=== PATIENT | female | born 1940 | race Caucasian/White ===

== ENCOUNTER 2018-10-28 07:40 | Inpatient (IN) ==
--- NOTE | 2018-10-18 09:48 | PAT Medication Instructions ---
Medication Instructions Date of Service October 18, 2018 Home Medications amlodipine 10 mg PO QAM atorvastatin 20 mg PO HS calcium carbonate-vitamin D3 [Calcium 600 + D(3)] 1 cap PO QPM cholecalciferol (vitamin D3) [Vitamin D3] 1,000 unit PO QAM cinnamon bark [Cinnamon] 500 mg PO QPM clonazepam 0.5 mg PO HS cranberry conc-ascorbic acid [Cranberry Plus Vitamin C] 1 cap PO QPM cyanocobalamin (vitamin B-12) 1,000 mcg PO QAM denosumab [Prolia] 60 mg SUBCUT UD fluticasone propionate 1 spray INTRANASAL QPM levocetirizine 5 mg PO HS levothyroxine 137 mcg PO QAM losartan 100 mg PO QAM melatonin 10 mg PO HS metformin 500 mg PO BID metoprolol tartrate 100 mg PO BID bxkcxeowsaxn-hnhrible-bzflos [Multivitamin 50 Plus] 1 tab PO QAM omega 3-mxm-bde-fish oil [Fish Oil] 1 cap PO QAM omeprazole 40 mg PO QAM potassium chloride 20 meq PO BID trazodone 150 mg PO HS ASK your prescriber and surgeon denosumab [Prolia] 60 mg SUBCUT UD STOP taking 2 weeks before surgery (or as soon as possible if surgery is within 2 weeks) cinnamon bark [Cinnamon] 500 mg PO QPM cranberry conc-ascorbic acid [Cranberry Plus Vitamin C] 1 cap PO QPM omega 3-ycd-iik-fish oil [Fish Oil] 1 cap PO QAM DO NOT take the morning of surgery cholecalciferol (vitamin D3) [Vitamin D3] 1,000 unit PO QAM cyanocobalamin (vitamin B-12) 1,000 mcg PO QAM losartan 100 mg PO QAM metformin 500 mg PO BID Multivitamin 50 Plus 1 tab PO QAM potassium chloride 20 meq PO BID Take morning of surgery With a small sip of water, OTHERWISE NOTHING TO EAT OR DRINK AFTER MIDNIGHT: amlodipine 10 mg PO QAM levothyroxine 137 mcg PO QAM metoprolol tartrate 100 mg PO BID omeprazole 40 mg PO QAM Take evening before surgery atorvastatin 20 mg PO HS calcium carbonate-vitamin D3 [Calcium 600 + D(3)] 1 cap PO QPM clonazepam 0.5 mg PO HS fluticasone propionate 1 spray INTRANASAL QPM levocetirizine 5 mg PO HS melatonin 10 mg PO HS metformin 500 mg PO BID metoprolol tartrate 100 mg PO BID potassium chloride 20 meq PO BID trazodone 150 mg PO HS Other Notes If you have any questions please call us at [phone] or [phone] or [phone] or [phone]
--- NOTE | 2018-10-18 14:51 | Anesthesiology Consultation ---
Date of Service October 18, 2018 Assessment & Plan (1) Encounter for pre-operative examination: - Check BSG AM DOS Chart Review Chart Review: Acceptable Risk for Surgery (pending surgeon-ordered PCP clearance scheduled 10/20 (Dr. Pal)) and Patient seen in Pre Admission Testing Teaching & Discussion Pre-Anesthesia Teaching/Discussion Notes: Instructed NPO after midnight before surgery,except medications with 15 cc of water. Medication instructions provided according to the PAT guidelines. History Surgery Operation Date: 10/28/18 09:00 Proposed Procedures p Right Reverse Total Shoulder Arthroplasty - Ck De Souza MD Height/Weight Height: 5 ft 3 in Weight: 90.9 kg Allergies Allergy/AdvReac Type Severity Reaction Status Date / Time adhesive Allergy Mild local Verified 10/18/18 14:50 irritation cefdinir AdvReac Severe severe Verified 10/18/18 14:50 diarrhea nitrofurantoin AdvReac Severe Organ Verified 10/18/18 14:50 failure diphenhydramine AdvReac Intermediate hallucinati Verified 10/18/18 14:50 ons gabapentin AdvReac Intermediate diarrhea Verified 10/18/18 08:04 lactose AdvReac Intermediate dyspepsia Unverified 10/18/18 14:50 levofloxacin AdvReac Intermediate diarrhea Verified 10/18/18 14:50 Penicillins AdvReac Intermediate diarrhea Verified 10/18/18 14:50 sodium benzoate AdvReac Intermediate severe Verified 10/18/18 14:50 diarrhea Sulfa (Sulfonamide AdvReac Intermediate N/V, renal Verified 10/18/18 14:50 Antibiotics) failure tapentadol AdvReac Intermediate nausea, Verified 10/18/18 14:50 light headed, chills BREE Inhibitors AdvReac Mild cough Verified 10/18/18 14:50 mold AdvReac Mild nasal Verified 10/18/18 08:04 congestion, coughing NSAIDS (Non-Steroidal AdvReac Mild GI upset Verified 10/18/18 08:04 Anti-Inflamma oxycodone AdvReac Mild nausea Verified 10/18/18 14:50 azithromycin AdvReac diarrhea Verified 10/18/18 15:38 Lettuce AdvReac Intermediate diarrhea Uncoded 05/16/15 10:30 Dust AdvReac Unknown nasal Uncoded 05/16/15 10:30 congestion, cough Medications Home Medications Medication Instructions Recorded Confirmed Last Taken amlodipine 10 mg PO QAM 10/18/18 10/18/18 Unknown atorvastatin 20 mg PO HS 10/18/18 10/18/18 Unknown calcium carbonate-vitamin D3 1 cap PO QPM 10/18/18 10/18/18 Unknown [Calcium 600 + D(3)] cholecalciferol (vitamin D3) 1,000 unit PO QAM 10/18/18 10/18/18 Unknown [Vitamin D3] cinnamon bark [Cinnamon] 500 mg PO QPM 10/18/18 10/18/18 Unknown clonazepam 0.5 mg PO HS 10/18/18 10/18/18 Unknown cranberry conc-ascorbic acid 1 cap PO QPM 10/18/18 10/18/18 Unknown [Cranberry Plus Vitamin C] cyanocobalamin (vitamin B-12) 1,000 mcg PO QAM 10/18/18 10/18/18 Unknown denosumab [Prolia] 60 mg SUBCUT UD 10/18/18 10/18/18 Unknown fluticasone propionate 1 spray INTRANASAL QPM 10/18/18 10/18/18 Unknown levocetirizine 5 mg PO HS 10/18/18 10/18/18 Unknown levothyroxine 137 mcg PO QAM 10/18/18 10/18/18 Unknown losartan 100 mg PO QAM 10/18/18 10/18/18 Unknown melatonin 10 mg PO HS 10/18/18 10/18/18 Unknown metformin 500 mg PO BID 10/18/18 10/18/18 Unknown metoprolol tartrate 100 mg PO BID 10/18/18 10/18/18 Unknown mzxdggyvjoxy-xmwbwdel-hcoopy 1 tab PO QAM 10/18/18 10/18/18 Unknown [Multivitamin 50 Plus] omega 7-nle-jxs-fish oil [Fish Oil] 1 cap PO QAM 10/18/18 10/18/18 Unknown omeprazole 40 mg PO QAM 10/18/18 10/18/18 Unknown potassium chloride 20 meq PO BID 10/18/18 10/18/18 Unknown trazodone 150 mg PO HS 10/18/18 10/18/18 Unknown Past Medical History Medical History Anxiety Degenerative disc disease Diabetes mellitus, type 2 NIDDM Fibromyalgia GERD (gastroesophageal reflux disease) controlled Hyperlipidemia Hypertension Hypothyroidism Insomnia Irritable bowel syndrome Obesity Osteoarthritis Restless leg syndrome Exercise / Class Metabolic Activity II 4-5 Yardwork/Stairs/Walk up hill Past Family History Family History Father Family history of diabetes mellitus Sister Family history of diabetes mellitus Brother Family history of diabetes mellitus Past Surgical History Surgical History Fusion of spine HARDWARE INTACT H/O bilateral oophorectomy History of appendectomy History of carpal tunnel release UNSURE OF WHICH SIDE History of cholecystectomy History of colonoscopy History of endoscopic sinus surgery History of foot surgery LEFT FOOT (3 SURGERIES) "FUSION" History of hysterectomy History of lumbar surgery TOTAL OF 6 BACK SURGERIES History of repair of rotator cuff RT History of tooth extraction History of total knee replacement RT/LEFT Past Anesthesia History No Hx of Anesthesia Complications and No Family Hx of Anesthesia Complications History of PONV No Hx of PONV and No Hx of Motion Sickness Social History Smoking Status: Never smoker Do You Dip or Chew Tobacco: No Hx Alcohol Use: No Hx Substance Use: No substance use type: does not use Review of Systems Reflux controlled. Patient denies chest pain, shortness of breath, dyspnea on exertion, cough, wheezing, palpitations. Physical Exam Vital Signs VITALS BP 144/60 P 59 TEMP 98.1 SP02 95%RA RESP 20 PHYSICAL Full neck and c-spine range of motion. Full TMJ range of motion. TMD 3.5 finger breaths Mallampati Score 2 Dentition: intact, 2 caps upper front, 1 crown upper front left side Lungs: clear throughout to auscultation Cardiac: regular rate and rhythm, I/ systolic murmur Spine: normal Carotid arteries: negative bruit Extremities: no edema Testing Laboratory Results 10/18/18 15:27 10/18/18 15:27 PT 10.2 Seconds (9.0-12.0) 10/18/18 15:27 INR 1.0 (0.9-1.1) 10/18/18 15:27 APTT 26.1 Seconds (21.0-31.0) 10/18/18 15:27 Hemoglobin A1c 5.6 % (4.5-5.6) 10/18/18 15:27 Urine Color Yellow 10/18/18 15:27 Urine Appearance Clear (Clear) 10/18/18 15:27 Urine pH 5.0 (4.5-7.5) 10/18/18 15:27 Ur Specific [place] 1.014 (1.000-1.030) 10/18/18 15:27 Urine Protein Negative (Negative) 10/18/18 15:27 Urine Glucose (UA) Negative (Negative) 10/18/18 15:27 Urine Ketones Negative (Negative) 10/18/18 15:27 Urine Nitrite Negative (Negative) 10/18/18 15:27 Ur Leukocyte Esterase Negative (Negative) 10/18/18 15:27 Blood Type O Positive 10/18/18 15:27 Antibody Screen NEGATIVE 10/18/18 15:27 Electrocardiogram Date: 10/18/18 SB at 59bpm. NS STA. Chest X-Ray Date: 10/18/18 Atherosclerosis of the aortic arch. Cardiac silhouette normal in size. Lungs and pleural spaces clear. Posterior bilateral transpedicular Schoenrock fixation of the thoracolumbar spine. Extensive degenerative changes of the spine. Degenerative changes of the left glenohumeral joint. Cholecystectomy clips noted. No acute cardiopulmonary disease.
--- NOTE | 2018-10-18 16:20 | XRay Report ---
XR chest Pre-admission PA/Lat CLINICAL HISTORY: 77 years-old Female presenting with preoperative assessment. TECHNIQUE: PA and lateral views of the chest were obtained. COMPARISON: 11/22/2011. FINDINGS: Atherosclerosis of the aortic arch. Cardiac silhouette normal in size. Lungs and pleural spaces clear . Posterior bilateral transpedicular Schoenrock fixation of the thoracolumbar spine. Extensive degene rative changes of the spine. Degenerative changes of the left glenohumeral joint. Cholecystectomy cli ps noted. IMPRESSION: 1. No acute cardiopulmonary disease. Electronically signed by: Ck Escudero M.D. 10/18/2018 4:19 PM
[2018-10-18 16:24] LABS: Basophils # (auto) 0.02 K/uL (0-0.2); Basophils % (auto) 0.3 %; Eosinophils # (auto) 0.13 K/uL (0-0.5); Hematocrit (blood only) 36.5 % (37-47); Hemoglobin 12.4 g/dL (12.0-16.0); Immature Granulocytes # (auto) 0.01 K/uL (0.00-0.02); Immature Granulocytes % (auto) 0.2 %; Lymphocytes # (auto) 1.74 K/uL (1.2-3.4); Lymphocytes % (auto) 26.9 %; Mean Corpuscular Hemoglobin 29.1 pg (25-34); Mean Corpuscular Volume 85.7 fL (80-100); Monocytes # (auto) 0.78 K/uL (0.11-0.59); Monocytes % (auto) 12.1 %; Neutrophils # (auto) 3.79 K/uL (1.4-6.5); Neutrophils % (auto) 58.5 %; Platelet Count 201 K/uL (130-400); RDW Coefficient of Variation 13.7 % (11.5-14.5); RDW Standard Deviation 42.3 fL (36.4-46.3); Red Blood Count 4.26 M/uL (4.2-5.4); White Blood Count 6.47 K/uL (4.8-10.8)
[2018-10-18 16:25] LABS: Appearance Urine Clear (Clear); Bilirubin Urine Negative (Negative); Blood Urine Negative (Negative); Color Urine Yellow; Glucose Urine UA Negative (Negative); Ketones Urine Negative (Negative); Leukocyte Esterase Urine Negative (Negative); Nitrite Urine Negative (Negative); Protein Urine Negative (Negative); Specific Gravity Urine 1.014 (1.000-1.030); Urobilinogen Urine Negative (Negative)
[2018-10-18 16:38] LABS: Partial Thromboplastin Time 26.1 Seconds (21.0-31.0); Prothrombin Time 10.2 Seconds (9.0-12.0)
[2018-10-18 16:57] LABS: Albumin Level 3.7 gm/dl (3.4-5.0); Calcium 8.8 mg/dl (8.5-10.1); Creatinine Clr Calc Pharmacy 52.8 ml/min; Est GFR (African American) 65.8; Est GFR (Non-African American) 56.7
[2018-10-19 05:52] LABS: Estimated Average Glucose 114 mg/dl; Hemoglobin A1C 5.6 % (4.5-5.6)
--- NOTE | 2018-10-26 20:49 | History & Physical Report ---
Date of Service October 26, 2018 Assessment & Plan (1) Rotator cuff arthropathy of right shoulder: Treatment options discussed. She has failed conservative measures as above. She has exam and x-ray findings consistent with rotator cuff arthropathy. Risks, benefits and alternatives to surgery including but not limited to infection, DVT, pain, stiffness, need for revision surgery, damage to blood vessels, damage to nerves, PE, , were discussed with the patient and they wish to proceed. Plan will be for right reverse total shoulder arthroplasty. Plans on home health PT upon discharge from the hospital. All questions were answered. She will follow up post operatively. History of Present Illness Chief Complaint: Right shoulder pain Primary Care Provider: Mihir Shepard Patient is a 78 year old female with PMHx significant for HTN, DM2, high cholesterol, restless leg, anxiety, IBS, GERD, hypothyroidism presents with chronic right shoulder pain. She has failed conservative measures including injections and anti-inflammatory medications. She would like to proceed with shoulder replacement. Patient denies headaches, sweats, fevers, chills, double vision, blurred vision, cough, sore throat, dysphagia, chest pain, sob, wheezing, n/v/d/c, numbness, tingling, fatigue, urinary symptoms, mood disorders. ROS positive for right shoulder pain and stiffness. Allergies Allergy/AdvReac Type Severity Reaction Status Date / Time adhesive Allergy Mild local Verified 10/18/18 14:50 irritation cefdinir AdvReac Severe severe Verified 10/18/18 14:50 diarrhea nitrofurantoin AdvReac Severe Organ Verified 10/18/18 14:50 failure diphenhydramine AdvReac Intermediate hallucinati Verified 10/18/18 14:50 ons gabapentin AdvReac Intermediate diarrhea Verified 10/18/18 08:04 lactose AdvReac Intermediate dyspepsia Unverified 10/18/18 14:50 levofloxacin AdvReac Intermediate diarrhea Verified 10/18/18 14:50 Penicillins AdvReac Intermediate diarrhea Verified 10/18/18 14:50 sodium benzoate AdvReac Intermediate severe Verified 10/18/18 14:50 diarrhea Sulfa (Sulfonamide AdvReac Intermediate N/V, renal Verified 10/18/18 14:50 Antibiotics) failure tapentadol AdvReac Intermediate nausea, Verified 10/18/18 14:50 light headed, chills BREE Inhibitors AdvReac Mild cough Verified 10/18/18 14:50 mold AdvReac Mild nasal Verified 10/18/18 08:04 congestion, coughing NSAIDS (Non-Steroidal AdvReac Mild GI upset Verified 10/18/18 08:04 Anti-Inflamma oxycodone AdvReac Mild nausea Verified 10/18/18 14:50 azithromycin AdvReac diarrhea Verified 10/18/18 15:38 Lettuce AdvReac Intermediate diarrhea Uncoded 05/16/15 10:30 Dust AdvReac Unknown nasal Uncoded 05/16/15 10:30 congestion, cough Home Medications Home Medications Medication Instructions Recorded Confirmed Type amlodipine 10 mg PO QAM 10/18/18 10/18/18 History atorvastatin 20 mg PO HS 10/18/18 10/18/18 History calcium carbonate-vitamin D3 1 cap PO QPM 10/18/18 10/18/18 History [Calcium 600 + D(3)] cholecalciferol (vitamin D3) 1,000 unit PO QAM 10/18/18 10/18/18 History [Vitamin D3] cinnamon bark [Cinnamon] 500 mg PO QPM 10/18/18 10/18/18 History clonazepam 0.5 mg PO HS 10/18/18 10/18/18 History cranberry conc-ascorbic acid 1 cap PO QPM 10/18/18 10/18/18 History [Cranberry Plus Vitamin C] cyanocobalamin (vitamin B-12) 1,000 mcg PO QAM 10/18/18 10/18/18 History denosumab [Prolia] 60 mg SUBCUT UD 10/18/18 10/18/18 History fluticasone propionate 1 spray INTRANASAL QPM 10/18/18 10/18/18 History levocetirizine 5 mg PO HS 10/18/18 10/18/18 History levothyroxine 137 mcg PO QAM 10/18/18 10/18/18 History losartan 100 mg PO QAM 10/18/18 10/18/18 History melatonin 10 mg PO HS 10/18/18 10/18/18 History metformin 500 mg PO BID 10/18/18 10/18/18 History metoprolol tartrate 100 mg PO BID 10/18/18 10/18/18 History rzkgxhwhjfft-olkofosm-hzcewx 1 tab PO QAM 10/18/18 10/18/18 History [Multivitamin 50 Plus] omega 8-zhc-snc-fish oil [Fish Oil] 1 cap PO QAM 10/18/18 10/18/18 History omeprazole 40 mg PO QAM 10/18/18 10/18/18 History potassium chloride 20 meq PO BID 10/18/18 10/18/18 History trazodone 150 mg PO HS 10/18/18 10/18/18 History Past Med/Surg History Medical History Anxiety Degenerative disc disease Diabetes mellitus, type 2 NIDDM Fibromyalgia GERD (gastroesophageal reflux disease) controlled Hyperlipidemia Hypertension Hypothyroidism Insomnia Irritable bowel syndrome Obesity Osteoarthritis Restless leg syndrome Surgical History Fusion of spine HARDWARE INTACT H/O bilateral oophorectomy History of appendectomy History of carpal tunnel release UNSURE OF WHICH SIDE History of cholecystectomy History of colonoscopy History of endoscopic sinus surgery History of foot surgery LEFT FOOT (3 SURGERIES) "FUSION" History of hysterectomy History of lumbar surgery TOTAL OF 6 BACK SURGERIES History of repair of rotator cuff RT History of tooth extraction History of total knee replacement RT/LEFT Family History Father Family history of diabetes mellitus Sister Family history of diabetes mellitus Brother Family history of diabetes mellitus Social History Preferred Language: Syriac Communication Ability: Effective Slip Presser Required: No Beliefs That Will Affect Care: None Current Living Situation: Spouse Other Information That Helps Us Care for You: No Feels Safe at Home: Yes Safety Concerns: Feels Safe At This Time Smoking Status: Never smoker Do You Dip or Chew Tobacco: No ; Second Hand Exposure: Yes (IN THE PAST) ; Tobacco Cessation Education Requested by Patient: No Hx Alcohol Use: No Hx Substance Use: No Review of Systems All systems reviewed & are unremarkable except as noted in HPI & below Physical Exam Constitutional: well developed and well nourished; no acute distress Eyes: PERRL, conjunctivae normal, anicteric sclerae ENMT: external ear and nose normal, oropharynx normal Neck: trachea midline, no thyromegaly Respiratory: normal respiratory effort, lungs clear to auscultation Cardiovascular: RRR, no murmur, no edema Musculoskeletal: Right shoulder-Painful ROM actively in all directions, 3/5 strength supraspinatus. ROM 0-90 FF, 0-90 abduction, ER 0-40. Skin: no rashes, warm and dry Neurologic: patellar DTR's 2+ bilat, sensation intact Psychiatric: A+Ox3, euthymic affect Results & Data Laboratory Results Lab Results 10/18/18 10/18/18 10/18/18 Range/Units 15:27 15:27 15:27 WBC 6.47 (4.8-10.8) K/uL RBC 4.26 (4.2-5.4) M/uL Hgb 12.4 (12.0-16.0) g/dL Hct 36.5 L (37-47) % MCV 85.7 (80-100) fL MCH 29.1 (25-34) pg MCHC 34.0 (32-36) g/dL RDW Std Deviation 42.3 (36.4-46.3) fL RDW Coeff of Suzy 13.7 (11.5-14.5) % Plt Count 201 (130-400) K/uL MPV 10.0 (7.4-10.4) fL Immature Gran % (Auto) 0.2 % Neut % (Auto) 58.5 % Lymph % (Auto) 26.9 % [place] % (Auto) 12.1 % Eos % (Auto) 2.0 % Baso % (Auto) 0.3 % Immature Gran # (Auto) 0.01 (0.00-0.02) K/uL Neut # (Auto) 3.79 (1.4-6.5) K/uL Lymph # (Auto) 1.74 (1.2-3.4) K/uL [place] # (Auto) 0.78 H (0.11-0.59) K/uL Eos # (Auto) 0.13 (0-0.5) K/uL Baso # (Auto) 0.02 (0-0.2) K/uL PT 10.2 (9.0-12.0) Seconds INR 1.0 (0.9-1.1) APTT 26.1 (21.0-31.0) Seconds PTT Ratio 1.0 Sodium 137 (136-145) mmol/L Potassium 4.0 (3.5-5.1) mmol/L Chloride 100 (98-107) mmol/L Carbon Dioxide 26 (21-32) mmol/L Anion Gap 11.0 (3-11) BUN 15 (7-18) mg/dl Creatinine 0.97 (0.6-1.2) mg/dl Est Cr Clr Drug Dosing 52.8 ml/min Est GFR ( Amer) 65.8 Est GFR (Non-Af Amer) 56.7 BUN/Creatinine Ratio 16.0 (10-20) Glucose 113 H (70-99) mg/dl Estimat Average Glucose mg/dl Hemoglobin A1c (4.5-5.6) % Calcium 8.8 (8.5-10.1) mg/dl Albumin 3.7 (3.4-5.0) gm/dl Urine Color Urine Appearance (Clear) Urine pH (4.5-7.5) Ur Specific [place] (1.000-1.030) Urine Protein (Negative) Urine Glucose (UA) (Negative) Urine Ketones (Negative) Urine Blood (Negative) Urine Nitrite (Negative) Urine Bilirubin (Negative) Urine Urobilinogen (Negative) Ur Leukocyte Esterase (Negative) Blood Type Antibody Screen 10/18/18 10/18/18 10/18/18 Range/Units 15:27 15:27 15:27 WBC (4.8-10.8) K/uL RBC (4.2-5.4) M/uL Hgb (12.0-16.0) g/dL Hct (37-47) % MCV (80-100) fL MCH (25-34) pg MCHC (32-36) g/dL RDW Std Deviation (36.4-46.3) fL RDW Coeff of Suzy (11.5-14.5) % Plt Count (130-400) K/uL MPV (7.4-10.4) fL Immature Gran % (Auto) % Neut % (Auto) % Lymph % (Auto) % [place] % (Auto) % Eos % (Auto) % Baso % (Auto) % Immature Gran # (Auto) (0.00-0.02) K/uL Neut # (Auto) (1.4-6.5) K/uL Lymph # (Auto) (1.2-3.4) K/uL [place] # (Auto) (0.11-0.59) K/uL Eos # (Auto) (0-0.5) K/uL Baso # (Auto) (0-0.2) K/uL PT (9.0-12.0) Seconds INR (0.9-1.1) APTT (21.0-31.0) Seconds PTT Ratio Sodium (136-145) mmol/L Potassium (3.5-5.1) mmol/L Chloride (98-107) mmol/L Carbon Dioxide (21-32) mmol/L Anion Gap (3-11) BUN (7-18) mg/dl Creatinine (0.6-1.2) mg/dl Est Cr Clr Drug Dosing ml/min Est GFR ( Amer) Est GFR (Non-Af Amer) BUN/Creatinine Ratio (10-20) Glucose (70-99) mg/dl Estimat Average Glucose 114 mg/dl Hemoglobin A1c 5.6 (4.5-5.6) % Calcium (8.5-10.1) mg/dl Albumin (3.4-5.0) gm/dl Urine Color Yellow Urine Appearance Clear (Clear) Urine pH 5.0 (4.5-7.5) Ur Specific [place] 1.014 (1.000-1.030) Urine Protein Negative (Negative) Urine Glucose (UA) Negative (Negative) Urine Ketones Negative (Negative) Urine Blood Negative (Negative) Urine Nitrite Negative (Negative) Urine Bilirubin Negative (Negative) Urine Urobilinogen Negative (Negative) Ur Leukocyte Esterase Negative (Negative) Blood Type O Positive Antibody Screen NEGATIVE Diagnostic Findings Right shoulder radiographs: Humeral head elevation, rounding humeral head, joint space narrowing GH joint.
[~2018-10-28 07:40] MED LIST: ACETAMINOPHEN 500 MG TAB PO SCH; BUPIVACAINE/EPINEPHRINE 0.25% 1:200,000 30 ML VIAL ONE; CEFAZOLIN 2000MG 2,000 MG/15 ML SYR IV SCH; CLINDAMYCIN 600 MG/54 ML BAG IV SCH; FAMOTIDINE 20 MG TAB PO SCH; GABAPENTIN 300 MG CAP PO SCH; LR 15ML/HR IV SCH; METOCLOPRAMIDE HCL 10 MG TABLET PO SCH; dexAMETHasone 4 MG TAB PO SCH
[2018-10-28] MEDS ORDERED: ONDANSETRON INJ 2 MG/ML 2 ML VIAL ONE (07:52)
[2018-10-28] MEDS ORDERED: MIDAZOLAM HCL 1 MG/ML 2ML VIAL ONE (07:52)
[2018-10-28] MEDS ORDERED: DEXAMETHASONE SOD INJ 4 MG/ML VIAL ONE (07:52)
[2018-10-28] MEDS ORDERED: LIDOCAINE HCL 2% 2 ML VIAL/AMP(20MG/ML) INFIL ONE (07:52)
[2018-10-28] MEDS ORDERED: ROCURONIUM BROMIDE 10 MG/ML 5 ML VIAL ONE (07:52)
[2018-10-28] MEDS ORDERED: NEOSTIGMINE METHYLSULFATE 5 MG/5 ML SYR ONE (07:52)
[2018-10-28] MEDS ORDERED: PROPOFOL IV EMULSION 10 MG/ML 20 ML VIAL IV ONE (07:52)
[2018-10-28] MEDS ORDERED: GLYCOPYRROLATE 0.2 MG/ML VIAL ONE (07:52)
[2018-10-28] MEDS ORDERED: fentaNYL citrate 100 MCG/2 ML VIAL ONE (07:53)
--- NOTE | 2018-10-28 08:10 | History & Physical Bridge Note ---
Date of Service October 28, 2018 History & Physical Bridge Note I have examined the patient, reviewed the History & Physical and in the interval since the performance of the History & Physical I have noted the following changes of clinical significance: no changes noted
[2018-10-28] MEDS ORDERED: ROPIVACAINE 0.5% HCL/PF 150 MG, BUPIVACAINE 0.5% MPF 30 ML, EPINEPHrine 30MG/30ML (OR U... INFIL SCH (08:15)
[2018-10-28] MEDS ORDERED: BACITRACIN INJ 50,000 UNIT VIAL ONE (08:34)
[2018-10-28] MEDS ORDERED: EpINEphrine HCL INJ 1 MG/ML 1ML SYRINGE ONE (08:34)
[2018-10-28] MEDS ORDERED: THROMBIN FOR SOLN 20000 UNIT KIT ONE (08:34)
[2018-10-28] MEDS ORDERED: VANCOMYCIN HCL 1000MG/20ML VIAL ONE (08:34)
--- NOTE | 2018-10-28 11:10 | Operative Report ---
Post Operative Report Pre & Post Diagnosis Operation Date: 10/28/18 10:10 Pre-Op Diagnosis: Right Shoulder rotator cuff arthropathy Post-Op Diagnosis: Right Shoulder rotator cuff arthropathy Procedure Operation Date: 10/28/18 10:10 Actual Procedures p Right Reverse Total Shoulder Arthroplasty(Right) - Ck De Souza MD Surgeon Ck De Souza MD Repairer Cylinder Heads Jerod Smyth PA-C Estimated Blood Loss 50 Findings Consistent with Post-Op Diagnosis Specimens Bone and tissue Drains 1 Hemovac Anesthesia Type General Regional Complications none Disposition Accompanied Patient To Recovery: No Disposition: Recovery Room Indications The patient is a 78-year-old female long-standing pain in the right shoulder. She has rotator cuff arthropathy with significant degeneration of the gle nohumeral joint as well as humeral head elevation and attracted rotator cuff tear. She has failed conservative measures including injection, anti- inflammatories, rehab. She wishes to proceed with a right total shoulder arthroplasty. Description of Procedure Risks, benefits and alternatives to surgery including, but not limited to, infection DVT, pain, stiffness, need for revision surgery, failure to relieve all symptoms, damage to blood vessels, damage to nerves, risk of anesthesia were discussed with the patient and they wished to proceed. The patient was identified. Laterality was confirmed and marked. The patient received a preoperative antibiotic as well as an interscalene block. They were transferred to the operating room and placed in the supine position and induced into general endotracheal anesthesia per the anesthesia staff. The patient was then safely transferred to a slight beachchair position. The patient was secured in the Tenet positioner. All pressure points were well padded. The shoulder was prepped and draped in the usual sterile manner with ChloraPrep. The arm was secured in the Spider peck. I made a longitudinal incision just lateral to the coracoid, sharply incising through the skin and utilizing Bovie electrocautery to achieve hemostasis. I identified the cephalic vein and mobilized it laterally with the deltoid. I mobilize the pectoralis and mobilize this medially releasing a small portion of the upper border of the pec tendon to improve visualization. I then identified and mobilized the conjoined tendon. I identified the long head of the biceps tendon. 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 I then released the subscapularis. I pinned into place my humeral head version cutting guide and made my humeral head resection. I then sequentially reamed and sequentially broached. I then placed the trial humeral stem into the shoulder. I placed retractors around the glenoid and then excised the residual biceps tendon stump and glenoid labrum. I elevated the soft tissues and the inferior aspect of the glenoid to improve exposure and released tissues circumferentially. I then positioned and drilled for the central post for the glenoid plate. The glenoid plate was bone grafted with bone taken from the humeral head. I impacted the definitive glenoid plate into position and then placed a total of 4 compression screws that were then locked into position with locking caps. I then placed the glenosphere onto the plate and secured it with a locking screw. I then removed the trial humeral stem and placed the definitive humeral stem. I trialed off of the definitive stem. The definitive components used were [employer] Equinox: Preserve short humeral press-fit stem: 9 Standard glenoid plate Glenosphere: 38 Humeral tray:+ 0 Humeral polyethylene liner: + 2.5 I thoroughly irrigated the wound. Deep tissues were anesthetized with an ort homix solution. I then locked my definitive humeral tray into position with a torque limiting screw. I then impacted the definitive humeral polyethylene liner into position. I then reduced the shoulder. There was good range of motion and good stability after the reduction. The wound was again thoroughly irrigated and a Betadine soak was performed. A deep drain was placed. The deltopectoral interval was closed with interrupted #1 Ethibond suture. The subcutaneous tissue was closed with interrupted 2-0 Vicryl suture. The skin was closed with anil. A sterile dressing was applied. A sling was placed. All needle and sponge counts were correct at the end of the procedure. The patient was transferred to the PACU in stable condition without apparent complication. The PA-C was necessary for assistance with procedure for assistance in positioning, prepping, draping, retraction and closure. I attest to the content of the Intraoperative Record and any orders documented therein. Any exceptions are noted below.
--- NOTE | 2018-10-28 12:14 | Anesthesiology Progress Note ---
Date of Service October 28, 2018 Anesthesia Post Procedure Vital Signs Vital Signs: Temp Pulse Pulse Pulse Resp BP BP 10/28/18 12:00 56 L 14 172/73 H 10/28/18 11:56 54 L 12 177/74 H 10/28/18 11:55 54 L 13 10/28/18 11:51 54 L 15 165/74 H 10/28/18 11:50 55 L 13 10/28/18 11:46 54 L 14 10/28/18 11:45 36.2 C L 60 83 15 157/70 H 157/70 H 10/28/18 08:21 36.4 C L 95 H 22 BP Pulse Ox 10/28/18 12:00 100 10/28/18 11:56 100 10/28/18 11:55 100 10/28/18 11:51 100 10/28/18 11:50 100 10/28/18 11:46 99 10/28/18 11:45 99 10/28/18 08:21 173/70 H 95 Pain Intensity Right Shoulder: Pain Intensity: 0 Transfer of Care Handoff Completed per policy Notes Mental Status: alert / awake / arousable and participated in evaluation Patient Amnestic to Procedure: Yes Nausea / Vomiting: adequately controlled Pain: adequately controlled Airway Patency, RR, SpO2: stable & adequate BP & HR: stable & adequate Hydration State: stable & adequate Anesthetic Complications: no major complications apparent and Pt Satisfied with anesthetic care
--- NOTE | 2018-10-28 13:03 | XRay Report ---
XR shoulder RT min 2V routine CLINICAL HISTORY: Post shoulder surgery joint arthroplasty COMPARISON: None. DISCUSSION: Anatomic alignment posttotal right shoulder arthroplasty. Could contact between prostheti c and underlying bone. Expected soft tissue postoperative change IMPRESSION: Anatomic alignment posttotal right shoulder arthroplasty. The above report was generated using voice recognition software. It may contain grammatical, syntax or spelling errors. Electronically signed by: Daniele Orourke M.D. 10/28/2018 1:02 PM
[2018-10-28] MEDS ORDERED: SODIUM CHLORIDE 0.9% 1000ML 1,000 ML IV SCH (13:20)
[2018-10-28] MEDS ORDERED: METOCLOPRAMIDE HCL INJ 5 MG/ML 2 ML VIAL IV PRN (13:20)
[2018-10-28] MEDS ORDERED: ONDANSETRON INJ 2 MG/ML 2 ML VIAL IV PRN (13:20)
[2018-10-28] MEDS ORDERED: NALOXONE HCL 0.4 MG/1 ML VIAL/CARP IV PRN (13:20)
[2018-10-28] MEDS ORDERED: NON-FORMULARY MEDICATION (Denosumab 60 MG) SQ SCH (13:20)
[2018-10-28] MEDS ORDERED: BISACODYL 10 MG SUPP PR PRN (13:20)
[2018-10-28] MEDS ORDERED: MAGNESIUM HYDROXIDE SUSP 30 ML UDC PO PRN (13:20)
[2018-10-28] MEDS ORDERED: PHARMACY GLYCEMIC MGMT CONSULT PRN (14:04)
[2018-10-28] MEDS ORDERED: NovoLIN-N (NPH) PER UNIT CHARGE SQ ONE ×2 (14:15)
--- NOTE | 2018-10-28 15:11 | Pharmacy Report ---
Pharmacy Glycemic Short Note 2 - Date of Service October 28, 2018 - Glycemic Short BSG Results (Last 24 hours): 10/28/18 10/28/18 08:13 13:05 POC Glucose 133 H 139 H OUTPATIENT ANTIDIABETIC REGIMEN: * Metformin 500mg PO BIDM * A1c = 5.6% on 10/18/18 ASSESSMENT: * 78yo T2DM female with excellent outpatient control per recent A1c * Pt is maintained on oral antidiabetic agents as an outpatient * Oral agents are not recommended for inpatient use d/t drug interactions, changing PO intake, and difficulty titrating for acute hyper/hypoglycemia. ADA recommends re-initiating outpatient oral agents 1-2 days prior to discharge if/when appropriate if they were held on admission. * Will hold oral agents for admission and utilize SQ basal bolus insulin regimen which is the recommended regimen for inpatient glycemic control. * Will initiate weight based insulin dosing for steroid induced hyperglycemia (received 4mg IV dexamethasone in OR) titrate based on BSG trends. PLAN FOR INPATIENT GLYCEMIC CONTROL: * Hold outpatient oral diabetes medications * Basal insulin * NPH 25 units (~0.3 units/kg) SQ x 1 dose to cover DXM 4mg IV received in PACU * Bolus insulin * NovoLog per scale ACHS or Q6hrs while NPO * Goal Range: Low 110 mg/dL - High 140 mg/dL * Correction Factor: 25 mg/dL/unit * Nutritional / Prandial insulin per carb ratio of 1 unit per 9 grams CHO consumed PLAN FOR DISCHARGE: * A1c is in goal range - no changes needed to outpatient regimen.
[2018-10-28] MEDS ORDERED: DEXTROSE 50% 50 ML SYRINGE IV PRN (15:15)
[2018-10-28] MEDS ORDERED: GLUCAGON FOR INJ 1 MG VIAL IM PRN (15:15)
[2018-10-28] MEDS ORDERED: CARBOHYDRATES FOR HYPOGLYCEMIA PO PRN (15:15)
[2018-10-28] MEDS ORDERED: GLUCOSE 40% GEL 15 GM TUBE PO PRN (15:15)
[2018-10-28] MEDS ORDERED: GLUCOSE 10 TABS/TUBE PO PRN (15:15)
[2018-10-28] MEDS: INSULIN ASPART 100 UNITS/ML 3 ML PEN SC SCH ×3 (16:30→21:17)
[2018-10-28] MEDS: ACETAMINOPHEN 1,000 MG/100 ML VIAL IV SCH (16:42)
[2018-10-28] MEDS: CLINDAMYCIN 600 MG in DEXTROSE 5% 50 ML IV SCH (18:00)
[2018-10-28] MEDS ORDERED: clonazePAM 0.5 MG TAB PO SCH (21:00)
[2018-10-28] MEDS ORDERED: CALCIUM 600MG + VIT D 400 IU TAB PO SCH (21:00)
[2018-10-28] MEDS ORDERED: ATORVASTATIN 20 MG TAB PO SCH (21:00)
[2018-10-28] MEDS ORDERED: TRAZODONE HCL 50 MG TAB PO SCH (21:00)
[2018-10-28] MEDS ORDERED: NON-FORMULARY MEDICATION (Cranberry Conc-Ascorbic Acid [Cranberry Plus Vitamin C] 1 CAP) PO SCH (21:00)
[2018-10-28] MEDS ORDERED: FLUTICASONE PROPIONATE NA SPR 16 GM BTL SCH (21:00)
[2018-10-28] MEDS ORDERED: SENNA 8.6 MG TAB PO SCH (21:00)
[2018-10-28] MEDS: DOCUSATE SODIUM 100 MG CAP PO SCH (21:06)
[2018-10-28] MEDS: POTASSIUM CHLORIDE 20 MEQ TABCR PO SCH (21:07)
[2018-10-28] MEDS: METOPROLOL TARTRATE 100 MG TAB PO SCH (21:07)
[2018-10-29] MEDS: HYDROmorphone INJ 0.5 MG/0.5 ML SYR IV PRN ×2 (00:24→04:33)
[2018-10-29] MEDS: CLINDAMYCIN 600 MG in DEXTROSE 5% 50 ML IV SCH (00:24)
[2018-10-29] MEDS: ACETAMINOPHEN 1,000 MG/100 ML VIAL IV SCH (00:25)
[2018-10-29 06:07] LABS: Hematocrit (blood only) 27.8 % (37-47); Hemoglobin 9.4 g/dL (12.0-16.0); Immature Granulocytes # (auto) 0.02 K/uL (0.00-0.02); Immature Granulocytes % (auto) 0.2 %; Lymphocytes # (auto) 1.07 K/uL (1.2-3.4); Lymphocytes % (auto) 10.6 %; Mean Corpuscular Hemoglobin 28.7 pg (25-34); Mean Corpuscular Hgb Conc 33.8 g/dL (32-36); Mean Platelet Volume 9.2 fL (7.4-10.4); Monocytes # (auto) 1.35 K/uL (0.11-0.59); Monocytes % (auto) 13.4 %; Neutrophils # (auto) 7.65 K/uL (1.4-6.5); Neutrophils % (auto) 75.8 %; Platelet Count 147 K/uL (130-400); RDW Coefficient of Variation 13.8 % (11.5-14.5); RDW Standard Deviation 42.6 fL (36.4-46.3); Red Blood Count 3.27 M/uL (4.2-5.4); White Blood Count 10.09 K/uL (4.8-10.8)
[2018-10-29] MEDS: OXYCODONE HCL IR 5 MG TAB (IMMEDIATE RELEASE) PO PRN ×2 (06:08→11:11)
[2018-10-29] MEDS ORDERED: LEVOTHYROXINE SODIUM 137 MCG TABLET PO SCH (06:30)
[2018-10-29 06:38] LABS: BUN Creatinine Ratio 14.3 (10-20); Calcium 8.4 mg/dl (8.5-10.1); Creatinine Clr Calc Pharmacy 44.9 ml/min; Est GFR (African American) 54.9; Est GFR (Non-African American) 47.3; Potassium 4.1 mmol/L (3.5-5.1)
--- NOTE | 2018-10-29 07:07 | Orthopedic Progress Note ---
Date of Service October 29, 2018 Assessment & Plan (1) Rotator cuff arthropathy of right shoulder: POD#1 right reverse TSA -Pain management -PT/OT -DVT prophylaxis-SCDs -D/C planning- patient will be discharge home with home health PT likely later today as long as therapy goes well and pain continues to be well controlled. Subjective Patient is POD#1 Right reverse TSA. Doing well this morning, pain well controlled. No complaints. Review of Systems Review of Systems: All systems reviewed & are unremarkable except as noted in HPI & below Physical Exam Physical Exam: Resting in bed comfortably. Dressing is c/d/i, hemovac in place. Fingers are mobile, good sock turner strength. Constitutional: well developed and well nourished; no acute distress Results & Data Vital Signs (Past 12 Hours) Vital Signs Temp Pulse Resp BP Pulse Ox 10/29/18 03:00 36.8 C 60 16 108/62 92 10/28/18 23:10 36.7 C 62 16 122/70 90 10/28/18 21:13 133/70 10/28/18 19:38 36.4 C L 58 L 16 127/65 91 Laboratory Results Lab Results 10/18/18 10/18/18 10/18/18 Range/Units 15:27 15:27 15:27 WBC 6.47 (4.8-10.8) K/uL RBC 4.26 (4.2-5.4) M/uL Hgb 12.4 (12.0-16.0) g/dL Hct 36.5 L (37-47) % MCV 85.7 (80-100) fL MCH 29.1 (25-34) pg MCHC 34.0 (32-36) g/dL RDW Std Deviation 42.3 (36.4-46.3) fL RDW Coeff of Suzy 13.7 (11.5-14.5) % Plt Count 201 (130-400) K/uL MPV 10.0 (7.4-10.4) fL Immature Gran % (Auto) 0.2 % Neut % (Auto) 58.5 % Lymph % (Auto) 26.9 % Tucker % (Auto) 12.1 % Eos % (Auto) 2.0 % Baso % (Auto) 0.3 % Immature Gran # (Auto) 0.01 (0.00-0.02) K/uL Neut # (Auto) 3.79 (1.4-6.5) K/uL Lymph # (Auto) 1.74 (1.2-3.4) K/uL Tucker # (Auto) 0.78 H (0.11-0.59) K/uL Eos # (Auto) 0.13 (0-0.5) K/uL Baso # (Auto) 0.02 (0-0.2) K/uL PT 10.2 (9.0-12.0) Seconds INR 1.0 (0.9-1.1) APTT 26.1 (21.0-31.0) Seconds PTT Ratio 1.0 Sodium 137 (136-145) mmol/L Potassium 4.0 (3.5-5.1) mmol/L Chloride 100 (98-107) mmol/L Carbon Dioxide 26 (21-32) mmol/L Anion Gap 11.0 (3-11) BUN 15 (7-18) mg/dl Creatinine 0.97 (0.6-1.2) mg/dl Est Cr Clr Drug Dosing 52.8 ml/min Est GFR ( Amer) 65.8 Est GFR (Non-Af Amer) 56.7 BUN/Creatinine Ratio 16.0 (10-20) Glucose 113 H (70-99) mg/dl POC Glucose (70-99) Estimat Average Glucose mg/dl Hemoglobin A1c (4.5-5.6) % Calcium 8.8 (8.5-10.1) mg/dl Albumin 3.7 (3.4-5.0) gm/dl Urine Color Urine Appearance (Clear) Urine pH (4.5-7.5) Ur Specific [place] (1.000-1.030) Urine Protein (Negative) Urine Glucose (UA) (Negative) Urine Ketones (Negative) Urine Blood (Negative) Urine Nitrite (Negative) Urine Bilirubin (Negative) Urine Urobilinogen (Negative) Ur Leukocyte Esterase (Negative) Blood Type Antibody Screen 10/18/18 10/18/18 10/18/18 Range/Units 15:27 15:27 15:27 WBC (4.8-10.8) K/uL RBC (4.2-5.4) M/uL Hgb (12.0-16.0) g/dL Hct (37-47) % MCV (80-100) fL MCH (25-34) pg MCHC (32-36) g/dL RDW Std Deviation (36.4-46.3) fL RDW Coeff of Suzy (11.5-14.5) % Plt Count (130-400) K/uL MPV (7.4-10.4) fL Immature Gran % (Auto) % Neut % (Auto) % Lymph % (Auto) % Tucker % (Auto) % Eos % (Auto) % Baso % (Auto) % Immature Gran # (Auto) (0.00-0.02) K/uL Neut # (Auto) (1.4-6.5) K/uL Lymph # (Auto) (1.2-3.4) K/uL Tucker # (Auto) (0.11-0.59) K/uL Eos # (Auto) (0-0.5) K/uL Baso # (Auto) (0-0.2) K/uL PT (9.0-12.0) Seconds INR (0.9-1.1) APTT (21.0-31.0) Seconds PTT Ratio Sodium (136-145) mmol/L Potassium (3.5-5.1) mmol/L Chloride (98-107) mmol/L Carbon Dioxide (21-32) mmol/L Anion Gap (3-11) BUN (7-18) mg/dl Creatinine (0.6-1.2) mg/dl Est Cr Clr Drug Dosing ml/min Est GFR ( Amer) Est GFR (Non-Af Amer) BUN/Creatinine Ratio (10-20) Glucose (70-99) mg/dl POC Glucose (70-99) Estimat Average Glucose 114 mg/dl Hemoglobin A1c 5.6 (4.5-5.6) % Calcium (8.5-10.1) mg/dl Albumin (3.4-5.0) gm/dl Urine Color Yellow Urine Appearance Clear (Clear) Urine pH 5.0 (4.5-7.5) Ur Specific [place] 1.014 (1.000-1.030) Urine Protein Negative (Negative) Urine Glucose (UA) Negative (Negative) Urine Ketones Negative (Negative) Urine Blood Negative (Negative) Urine Nitrite Negative (Negative) Urine Bilirubin Negative (Negative) Urine Urobilinogen Negative (Negative) Ur Leukocyte Esterase Negative (Negative) Blood Type O Positive Antibody Screen NEGATIVE 10/28/18 10/28/18 10/28/18 Range/Units 08:13 13:05 16:28 WBC (4.8-10.8) K/uL RBC (4.2-5.4) M/uL Hgb (12.0-16.0) g/dL Hct (37-47) % MCV (80-100) fL MCH (25-34) pg MCHC (32-36) g/dL RDW Std Deviation (36.4-46.3) fL RDW Coeff of Suzy (11.5-14.5) % Plt Count (130-400) K/uL MPV (7.4-10.4) fL Immature Gran % (Auto) % Neut % (Auto) % Lymph % (Auto) % Tucker % (Auto) % Eos % (Auto) % Baso % (Auto) % Immature Gran # (Auto) (0.00-0.02) K/uL Neut # (Auto) (1.4-6.5) K/uL Lymph # (Auto) (1.2-3.4) K/uL Tucker # (Auto) (0.11-0.59) K/uL Eos # (Auto) (0-0.5) K/uL Baso # (Auto) (0-0.2) K/uL PT (9.0-12.0) Seconds INR (0.9-1.1) APTT (21.0-31.0) Seconds PTT Ratio Sodium (136-145) mmol/L Potassium (3.5-5.1) mmol/L Chloride (98-107) mmol/L Carbon Dioxide (21-32) mmol/L Anion Gap (3-11) BUN (7-18) mg/dl Creatinine (0.6-1.2) mg/dl Est Cr Clr Drug Dosing ml/min Est GFR ( Amer) Est GFR (Non-Af Amer) BUN/Creatinine Ratio (10-20) Glucose (70-99) mg/dl POC Glucose 133 H 139 H 155 H (70-99) Estimat Average Glucose mg/dl Hemoglobin A1c (4.5-5.6) % Calcium (8.5-10.1) mg/dl Albumin (3.4-5.0) gm/dl Urine Color Urine Appearance (Clear) Urine pH (4.5-7.5) Ur Specific [place] (1.000-1.030) Urine Protein (Negative) Urine Glucose (UA) (Negative) Urine Ketones (Negative) Urine Blood (Negative) Urine Nitrite (Negative) Urine Bilirubin (Negative) Urine Urobilinogen (Negative) Ur Leukocyte Esterase (Negative) Blood Type Antibody Screen 10/28/18 10/28/18 10/29/18 Range/Units 17:11 20:50 05:54 WBC 10.09 (4.8-10.8) K/uL RBC 3.27 L (4.2-5.4) M/uL Hgb 9.4 L (12.0-16.0) g/dL Hct 27.8 L (37-47) % MCV 85.0 (80-100) fL MCH 28.7 (25-34) pg MCHC 33.8 (32-36) g/dL RDW Std Deviation 42.6 (36.4-46.3) fL RDW Coeff of Suzy 13.8 (11.5-14.5) % Plt Count 147 (130-400) K/uL MPV 9.2 (7.4-10.4) fL Immature Gran % (Auto) 0.2 % Neut % (Auto) 75.8 % Lymph % (Auto) 10.6 % Tucker % (Auto) 13.4 % Eos % (Auto) 0.0 % Baso % (Auto) 0.0 % Immature Gran # (Auto) 0.02 (0.00-0.02) K/uL Neut # (Auto) 7.65 H (1.4-6.5) K/uL Lymph # (Auto) 1.07 L (1.2-3.4) K/uL Tucker # (Auto) 1.35 H (0.11-0.59) K/uL Eos # (Auto) 0.00 (0-0.5) K/uL Baso # (Auto) 0.00 (0-0.2) K/uL PT (9.0-12.0) Seconds INR (0.9-1.1) APTT (21.0-31.0) Seconds PTT Ratio Sodium (136-145) mmol/L Potassium (3.5-5.1) mmol/L Chloride (98-107) mmol/L Carbon Dioxide (21-32) mmol/L Anion Gap (3-11) BUN (7-18) mg/dl Creatinine (0.6-1.2) mg/dl Est Cr Clr Drug Dosing ml/min Est GFR ( Amer) Est GFR (Non-Af Amer) BUN/Creatinine Ratio (10-20) Glucose (70-99) mg/dl POC Glucose 171 H 130 H (70-99) Estimat Average Glucose mg/dl Hemoglobin A1c (4.5-5.6) % Calcium (8.5-10.1) mg/dl Albumin (3.4-5.0) gm/dl Urine Color Urine Appearance (Clear) Urine pH (4.5-7.5) Ur Specific [place] (1.000-1.030) Urine Protein (Negative) Urine Glucose (UA) (Negative) Urine Ketones (Negative) Urine Blood (Negative) Urine Nitrite (Negative) Urine Bilirubin (Negative) Urine Urobilinogen (Negative) Ur Leukocyte Esterase (Negative) Blood Type Antibody Screen 10/29/18 Range/Units 05:54 WBC (4.8-10.8) K/uL RBC (4.2-5.4) M/uL Hgb (12.0-16.0) g/dL Hct (37-47) % MCV (80-100) fL MCH (25-34) pg MCHC (32-36) g/dL RDW Std Deviation (36.4-46.3) fL RDW Coeff of Suzy (11.5-14.5) % Plt Count (130-400) K/uL MPV (7.4-10.4) fL Immature Gran % (Auto) % Neut % (Auto) % Lymph % (Auto) % Tucker % (Auto) % Eos % (Auto) % Baso % (Auto) % Immature Gran # (Auto) (0.00-0.02) K/uL Neut # (Auto) (1.4-6.5) K/uL Lymph # (Auto) (1.2-3.4) K/uL Tucker # (Auto) (0.11-0.59) K/uL Eos # (Auto) (0-0.5) K/uL Baso # (Auto) (0-0.2) K/uL PT (9.0-12.0) Seconds INR (0.9-1.1) APTT (21.0-31.0) Seconds PTT Ratio Sodium 133 L (136-145) mmol/L Potassium 4.1 (3.5-5.1) mmol/L Chloride 99 (98-107) mmol/L Carbon Dioxide 26 (21-32) mmol/L Anion Gap 8.0 (3-11) BUN 16 (7-18) mg/dl Creatinine 1.12 (0.6-1.2) mg/dl Est Cr Clr Drug Dosing 44.9 ml/min Est GFR ( Amer) 54.9 Est GFR (Non-Af Amer) 47.3 BUN/Creatinine Ratio 14.3 (10-20) Glucose 131 H (70-99) mg/dl POC Glucose (70-99) Estimat Average Glucose mg/dl Hemoglobin A1c (4.5-5.6) % Calcium 8.4 L (8.5-10.1) mg/dl Albumin (3.4-5.0) gm/dl Urine Color Urine Appearance (Clear) Urine pH (4.5-7.5) Ur Specific [place] (1.000-1.030) Urine Protein (Negative) Urine Glucose (UA) (Negative) Urine Ketones (Negative) Urine Blood (Negative) Urine Nitrite (Negative) Urine Bilirubin (Negative) Urine Urobilinogen (Negative) Ur Leukocyte Esterase (Negative) Blood Type Antibody Screen
[2018-10-29] MEDS ORDERED: Nursing to Pharmacy Communication ONE (07:31)
[2018-10-29] MEDS ORDERED: ACETAMINOPHEN 500 MG TAB PO STA (07:35)
[2018-10-29] MEDS ORDERED: METFORMIN HCL 500 MG TAB PO SCH (08:00)
[2018-10-29] MEDS: DOCUSATE SODIUM 100 MG CAP PO SCH (08:31)
[2018-10-29] MEDS: METOPROLOL TARTRATE 100 MG TAB PO SCH (08:32)
[2018-10-29] MEDS: POTASSIUM CHLORIDE 20 MEQ TABCR PO SCH (08:32)
[2018-10-29] MEDS: INSULIN ASPART 100 UNITS/ML 3 ML PEN SC SCH (08:37)
[2018-10-29] MEDS ORDERED: CHOLECALCIFEROL 1,000 UNITS TAB PO SCH (09:00)
[2018-10-29] MEDS ORDERED: MULTIVITAMIN TAB PO SCH (09:00)
[2018-10-29] MEDS ORDERED: AMLODIPINE BESYLATE 5 MG TAB PO SCH (09:00)
[2018-10-29] MEDS ORDERED: CYANOCOBALAMIN 500 MCG TABLET (VITAMIN B-12) PO SCH (09:00)
[2018-10-29] MEDS ORDERED: MULTIVITAMIN MINERALS LUTEIN PO SCH (09:00)
[2018-10-29] MEDS ORDERED: LOSARTAN POTASSIUM 50 MG TAB PO SCH (09:00)
[2018-10-29] MEDS ORDERED: PANTOprazole 40 MG TAB PO SCH (09:00)
[2018-10-29] MEDS ORDERED: ACETAMINOPHEN 500 MG TAB PO SCH (14:00)
--- NOTE | 2018-10-29 16:14 | Discharge Summary ---
Date of Service October 29, 2018 Admission HPI Per Admitting Provider Patient is a 78 year old female with PMHx significant for HTN, DM2, high cholesterol, restless leg, anxiety, IBS, GERD, hypothyroidism presents with chronic right shoulder pain. She has failed conservative measures including injections and anti-inflammatory medications. She would like to proceed with shoulder replacement. Patient denies headaches, sweats, fevers, chills, double vision, blurred vision, cough, sore throat, dysphagia, chest pain, sob, wheezing, n/v/d/c, numbness, tingling, fatigue, urinary symptoms, mood disorders. ROS positive for right shoulder pain and stiffness. Admission Exam Per Admitting Provider Constitutional: well developed and well nourished; no acute distress Eyes: PERRL, conjunctivae normal, anicteric sclerae ENMT: external ear and nose normal, oropharynx normal Neck: trachea midline, no thyromegaly Respiratory: normal respiratory effort, lungs clear to auscultation Cardiovascular: RRR, no murmur, no edema Musculoskeletal: Right shoulder-Painful ROM actively in all directions, 3/5 strength supraspinatus. ROM 0-90 FF, 0-90 abduction, ER 0-40. Skin: no rashes, warm and dry Neurologic: patellar DTR's 2+ bilat, sensation intact Psychiatric: A+Ox3, euthymic affect Principal Diagnosis Right shoulder rotator cuff arthropathy Discharge Exam Constitutional well developed and well nourished; no acute distress Eyes PERRL, conjunctivae normal, anicteric sclerae ENMT external ear and nose normal, oropharynx normal Neck trachea midline, no thyromegaly Respiratory normal respiratory effort, lungs clear to auscultation Cardiovascular RRR, no murmur, no edema Skin no rashes, warm and dry Neurologic patellar DTR's 2+ bilat, sensation intact Psychiatric A+Ox3, euthymic affect Discharge Data Allergies Allergy/AdvReac Type Severity Reaction Status Date / Time adhesive Allergy Mild local Verified 10/28/18 08:46 irritation cefdinir AdvReac Severe severe Verified 10/28/18 08:46 diarrhea nitrofurantoin AdvReac Severe Organ Verified 10/28/18 08:46 failure diphenhydramine AdvReac Intermediate hallucinati Verified 10/28/18 08:46 ons gabapentin AdvReac Intermediate diarrhea Verified 10/28/18 08:46 lactose AdvReac Intermediate dyspepsia Verified 10/28/18 08:46 levofloxacin AdvReac Intermediate diarrhea Verified 10/28/18 08:46 Penicillins AdvReac Intermediate diarrhea Verified 10/28/18 08:46 sodium benzoate AdvReac Intermediate severe Verified 10/28/18 08:46 diarrhea Sulfa (Sulfonamide AdvReac Intermediate N/V, renal Verified 10/28/18 08:46 Antibiotics) failure tapentadol AdvReac Intermediate nausea, Verified 10/28/18 08:46 light headed, chills BREE Inhibitors AdvReac Mild cough Verified 10/28/18 08:46 mold AdvReac Mild nasal Verified 10/28/18 08:46 congestion, coughing NSAIDS (Non-Steroidal AdvReac Mild GI upset Verified 10/28/18 08:46 Anti-Inflamma oxycodone AdvReac Mild nausea Verified 10/28/18 08:46 azithromycin AdvReac diarrhea Verified 10/28/18 08:46 Dust AdvReac Unknown nasal Uncoded 10/28/18 08:46 congestion, cough Consultations 10/28/18 13:20 Consult Case Management - Discharge Planning Routine Procedures Performed Operation Date: 10/28/18 10:10 Actual Procedures p Right Reverse Total Shoulder Arthroplasty(Right) - Ck De Souza MD Ordered Studies 10/28/18 05:00 US - OR guided needle placemen Routine Hospital Course (1) Rotator cuff arthropathy of right shoulder: Patient presented for same day admission following right shoulder reverese tota shoulder arthroplasty on 10/28/18. She tolerated procedure well. The Patient had an uneventful hospital course. Post-operatively, her activity was progressed and well tolerated. They participated in PT, labs remained stable- lowest hemoglobin recorded: 9.4. Pain controlled on oral medications. Please refer to daily progress notes and PT notes for complete details. After exam on 10/29/18, patient was felt to be stable for discharge home with home health PT. Patient will f/u in the office in about 2 weeks for further evaluation including x-rays and incision check, sooner if having any issues or concerns. Lab Results 10/18/18 10/18/18 10/18/18 Range/Units 15:27 15:27 15:27 WBC 6.47 (4.8-10.8) K/uL RBC 4.26 (4.2-5.4) M/uL Hgb 12.4 (12.0-16.0) g/dL Hct 36.5 L (37-47) % MCV 85.7 (80-100) fL MCH 29.1 (25-34) pg MCHC 34.0 (32-36) g/dL RDW Std Deviation 42.3 (36.4-46.3) fL RDW Coeff of Suzy 13.7 (11.5-14.5) % Plt Count 201 (130-400) K/uL MPV 10.0 (7.4-10.4) fL Immature Gran % (Auto) 0.2 % Neut % (Auto) 58.5 % Lymph % (Auto) 26.9 % [place] % (Auto) 12.1 % Eos % (Auto) 2.0 % Baso % (Auto) 0.3 % Immature Gran # (Auto) 0.01 (0.00-0.02) K/uL Neut # (Auto) 3.79 (1.4-6.5) K/uL Lymph # (Auto) 1.74 (1.2-3.4) K/uL [place] # (Auto) 0.78 H (0.11-0.59) K/uL Eos # (Auto) 0.13 (0-0.5) K/uL Baso # (Auto) 0.02 (0-0.2) K/uL PT 10.2 (9.0-12.0) Seconds INR 1.0 (0.9-1.1) APTT 26.1 (21.0-31.0) Seconds PTT Ratio 1.0 Sodium 137 (136-145) mmol/L Potassium 4.0 (3.5-5.1) mmol/L Chloride 100 (98-107) mmol/L Carbon Dioxide 26 (21-32) mmol/L Anion Gap 11.0 (3-11) BUN 15 (7-18) mg/dl Creatinine 0.97 (0.6-1.2) mg/dl Est Cr Clr Drug Dosing 52.8 ml/min Est GFR ( Amer) 65.8 Est GFR (Non-Af Amer) 56.7 BUN/Creatinine Ratio 16.0 (10-20) Glucose 113 H (70-99) mg/dl POC Glucose (70-99) Estimat Average Glucose mg/dl Hemoglobin A1c (4.5-5.6) % Calcium 8.8 (8.5-10.1) mg/dl Albumin 3.7 (3.4-5.0) gm/dl Urine Color Urine Appearance (Clear) Urine pH (4.5-7.5) Ur Specific Raphine (1.000-1.030) Urine Protein (Negative) Urine Glucose (UA) (Negative) Urine Ketones (Negative) Urine Blood (Negative) Urine Nitrite (Negative) Urine Bilirubin (Negative) Urine Urobilinogen (Negative) Ur Leukocyte Esterase (Negative) Blood Type Antibody Screen 10/18/18 10/18/18 10/18/18 Range/Units 15:27 15:27 15:27 WBC (4.8-10.8) K/uL RBC (4.2-5.4) M/uL Hgb (12.0-16.0) g/dL Hct (37-47) % MCV (80-100) fL MCH (25-34) pg MCHC (32-36) g/dL RDW Std Deviation (36.4-46.3) fL RDW Coeff of Suzy (11.5-14.5) % Plt Count (130-400) K/uL MPV (7.4-10.4) fL Immature Gran % (Auto) % Neut % (Auto) % Lymph % (Auto) % [place] % (Auto) % Eos % (Auto) % Baso % (Auto) % Immature Gran # (Auto) (0.00-0.02) K/uL Neut # (Auto) (1.4-6.5) K/uL Lymph # (Auto) (1.2-3.4) K/uL [place] # (Auto) (0.11-0.59) K/uL Eos # (Auto) (0-0.5) K/uL Baso # (Auto) (0-0.2) K/uL PT (9.0-12.0) Seconds INR (0.9-1.1) APTT (21.0-31.0) Seconds PTT Ratio Sodium (136-145) mmol/L Potassium (3.5-5.1) mmol/L Chloride (98-107) mmol/L Carbon Dioxide (21-32) mmol/L Anion Gap (3-11) BUN (7-18) mg/dl Creatinine (0.6-1.2) mg/dl Est Cr Clr Drug Dosing ml/min Est GFR ( Amer) Est GFR (Non-Af Amer) BUN/Creatinine Ratio (10-20) Glucose (70-99) mg/dl POC Glucose (70-99) Estimat Average Glucose 114 mg/dl Hemoglobin A1c 5.6 (4.5-5.6) % Calcium (8.5-10.1) mg/dl Albumin (3.4-5.0) gm/dl Urine Color Yellow Urine Appearance Clear (Clear) Urine pH 5.0 (4.5-7.5) Ur Specific Raphine 1.014 (1.000-1.030) Urine Protein Negative (Negative) Urine Glucose (UA) Negative (Negative) Urine Ketones Negative (Negative) Urine Blood Negative (Negative) Urine Nitrite Negative (Negative) Urine Bilirubin Negative (Negative) Urine Urobilinogen Negative (Negative) Ur Leukocyte Esterase Negative (Negative) Blood Type O Positive Antibody Screen NEGATIVE 10/28/18 10/28/18 10/28/18 Range/Units 08:13 13:05 16:28 WBC (4.8-10.8) K/uL RBC (4.2-5.4) M/uL Hgb (12.0-16.0) g/dL Hct (37-47) % MCV (80-100) fL MCH (25-34) pg MCHC (32-36) g/dL RDW Std Deviation (36.4-46.3) fL RDW Coeff of Suzy (11.5-14.5) % Plt Count (130-400) K/uL MPV (7.4-10.4) fL Immature Gran % (Auto) % Neut % (Auto) % Lymph % (Auto) % [place] % (Auto) % Eos % (Auto) % Baso % (Auto) % Immature Gran # (Auto) (0.00-0.02) K/uL Neut # (Auto) (1.4-6.5) K/uL Lymph # (Auto) (1.2-3.4) K/uL [place] # (Auto) (0.11-0.59) K/uL Eos # (Auto) (0-0.5) K/uL Baso # (Auto) (0-0.2) K/uL PT (9.0-12.0) Seconds INR (0.9-1.1) APTT (21.0-31.0) Seconds PTT Ratio Sodium (136-145) mmol/L Potassium (3.5-5.1) mmol/L Chloride (98-107) mmol/L Carbon Dioxide (21-32) mmol/L Anion Gap (3-11) BUN (7-18) mg/dl Creatinine (0.6-1.2) mg/dl Est Cr Clr Drug Dosing ml/min Est GFR ( Amer) Est GFR (Non-Af Amer) BUN/Creatinine Ratio (10-20) Glucose (70-99) mg/dl POC Glucose 133 H 139 H 155 H (70-99) Estimat Average Glucose mg/dl Hemoglobin A1c (4.5-5.6) % Calcium (8.5-10.1) mg/dl Albumin (3.4-5.0) gm/dl Urine Color Urine Appearance (Clear) Urine pH (4.5-7.5) Ur Specific Raphine (1.000-1.030) Urine Protein (Negative) Urine Glucose (UA) (Negative) Urine Ketones (Negative) Urine Blood (Negative) Urine Nitrite (Negative) Urine Bilirubin (Negative) Urine Urobilinogen (Negative) Ur Leukocyte Esterase (Negative) Blood Type Antibody Screen 10/28/18 10/28/18 10/29/18 Range/Units 17:11 20:50 05:54 WBC 10.09 (4.8-10.8) K/uL RBC 3.27 L (4.2-5.4) M/uL Hgb 9.4 L (12.0-16.0) g/dL Hct 27.8 L (37-47) % MCV 85.0 (80-100) fL MCH 28.7 (25-34) pg MCHC 33.8 (32-36) g/dL RDW Std Deviation 42.6 (36.4-46.3) fL RDW Coeff of Suzy 13.8 (11.5-14.5) % Plt Count 147 (130-400) K/uL MPV 9.2 (7.4-10.4) fL Immature Gran % (Auto) 0.2 % Neut % (Auto) 75.8 % Lymph % (Auto) 10.6 % [place] % (Auto) 13.4 % Eos % (Auto) 0.0 % Baso % (Auto) 0.0 % Immature Gran # (Auto) 0.02 (0.00-0.02) K/uL Neut # (Auto) 7.65 H (1.4-6.5) K/uL Lymph # (Auto) 1.07 L (1.2-3.4) K/uL [place] # (Auto) 1.35 H (0.11-0.59) K/uL Eos # (Auto) 0.00 (0-0.5) K/uL Baso # (Auto) 0.00 (0-0.2) K/uL PT (9.0-12.0) Seconds INR (0.9-1.1) APTT (21.0-31.0) Seconds PTT Ratio Sodium (136-145) mmol/L Potassium (3.5-5.1) mmol/L Chloride (98-107) mmol/L Carbon Dioxide (21-32) mmol/L Anion Gap (3-11) BUN (7-18) mg/dl Creatinine (0.6-1.2) mg/dl Est Cr Clr Drug Dosing ml/min Est GFR ( Amer) Est GFR (Non-Af Amer) BUN/Creatinine Ratio (10-20) Glucose (70-99) mg/dl POC Glucose 171 H 130 H (70-99) Estimat Average Glucose mg/dl Hemoglobin A1c (4.5-5.6) % Calcium (8.5-10.1) mg/dl Albumin (3.4-5.0) gm/dl Urine Color Urine Appearance (Clear) Urine pH (4.5-7.5) Ur Specific [place]aph[place] (1.000-1.030) Urine Protein (Negative) Urine Glucose (UA) (Negative) Urine Ketones (Negative) Urine Blood (Negative) Urine Nitrite (Negative) Urine Bilirubin (Negative) Urine Urobilinogen (Negative) Ur Leukocyte Esterase (Negative) Blood Type Antibody Screen 10/29/18 10/29/18 Range/Units 05:54 08:25 WBC (4.8-10.8) K/uL RBC (4.2-5.4) M/uL Hgb (12.0-16.0) g/dL Hct (37-47) % MCV (80-100) fL MCH (25-34) pg MCHC (32-36) g/dL RDW Std Deviation (36.4-46.3) fL RDW Coeff of Suzy (11.5-14.5) % Plt Count (130-400) K/uL MPV (7.4-10.4) fL Immature Gran % (Auto) % Neut % (Auto) % Lymph % (Auto) % [place] % (Auto) % Eos % (Auto) % Baso % (Auto) % Immature Gran # (Auto) (0.00-0.02) K/uL Neut # (Auto) (1.4-6.5) K/uL Lymph # (Auto) (1.2-3.4) K/uL [place] # (Auto) (0.11-0.59) K/uL Eos # (Auto) (0-0.5) K/uL Baso # (Auto) (0-0.2) K/uL PT (9.0-12.0) Seconds INR (0.9-1.1) APTT (21.0-31.0) Seconds PTT Ratio Sodium 133 L (136-145) mmol/L Potassium 4.1 (3.5-5.1) mmol/L Chloride 99 (98-107) mmol/L Carbon Dioxide 26 (21-32) mmol/L Anion Gap 8.0 (3-11) BUN 16 (7-18) mg/dl Creatinine 1.12 (0.6-1.2) mg/dl Est Cr Clr Drug Dosing 44.9 ml/min Est GFR ( Amer) 54.9 Est GFR (Non-Af Amer) 47.3 BUN/Creatinine Ratio 14.3 (10-20) Glucose 131 H (70-99) mg/dl POC Glucose 159 H (70-99) Estimat Average Glucose mg/dl Hemoglobin A1c (4.5-5.6) % Calcium 8.4 L (8.5-10.1) mg/dl Albumin (3.4-5.0) gm/dl Urine Color Urine Appearance (Clear) Urine pH (4.5-7.5) Ur Specific [place] (1.000-1.030) Urine Protein (Negative) Urine Glucose (UA) (Negative) Urine Ketones (Negative) Urine Blood (Negative) Urine Nitrite (Negative) Urine Bilirubin (Negative) Urine Urobilinogen (Negative) Ur Leukocyte Esterase (Negative) Blood Type Antibody Screen Total Time Total Time Spent Total Time Spent (In Minutes): 20 Discharge Plan Discharge Items Patient Disposition: Home - Home Health Services Reason For Visit: Right Shoulder Osteoarthritis Discharge Diagnosis: Right shoulder osteoarthritis Activity: Per Instructions section Non-emergency contact: Surgeon Call non-emergency contact if: you have any medication questions, your pain is not controlled, your pain is concerning for you, you have a fever, your temperature is above 101, your wound has increased redness and your wound has increased drainage Follow-up/Referrals: Mihir Shepard D.O. [Primary Care Provider] - Diet: Regular Addtl Attending Provider Instructions: ACTIVITY RECOMMENDATIONS: SELF CARE INSTRUCTIONS AFTER REVERSE TOTAL SHOULDER ARTHROPLASTY A. You may do daily exercises as taught in physical therapy while in hospital. No lifting with the operative arm. You should start PT within 2-3 days post operatively. Specific restrictions will be written on your physical therapy prescription that is provided to you. B. You are to wear your sling/immobilizer at all times EXCEPT when performing your daily exercises, participating in physical therapy and for hygiene purposes. C. You may perform dry, daily dressing changes. Please keep your incision covered. You may shower 48 hours after surgery. Do not apply soap or any ointment/lotions directly over incision. Do not soak incision in bath tub/swimming pool. D. You may use ice as needed to operative shoulder. SPECIAL CARE INSTRUCTIONS: MEDICATION INSTRUCTIONS: VERY IMPORTANT TO READ AND REVIEW A. There are a few signs you need to watch for after you are home. Call [facility] at [phone] if you experience any of the followin. Increased severe shoulder pain. Some pain is expected especially when you exercise. 2. Increased swelling in you shoulder or arm; pain or swelling in either upper extremity. 3. Any fluid drainage from the incision. 4. Shortness of breath or chest pain. B. Please call [facility] at [phone] if you have any questions or concerns about your operation or recovery. C. Call your physician if: 1. Temperature is greater than 101 degrees (F). 2. Pain is not relieved by prescribed pain medications. 3. Increase drainage or redness from incision. 4. Unanswered questions or concerns. FOLLOW UP VISIT: Please call [facility] at [phone] to schedule a follow up appointment with Dr. De Souza or his PA in 12-14 days from your surgery date. Pending Studies at Discharge: No Stand-Alone Forms: [facility], Opioid Pain Management Medications and DC Order Prescriptions: New oxycodone 5 mg Tablet 5 - 10 mg PO .Q4H-6H MDD 6 PRN (Reason: pain) Qty: 30 RF: 0 acetaminophen 500 mg tablet 1,000 mg PO Q8H Qty: 60 RF: 0 Continued metformin 500 mg Tablet 500 mg PO BID RF: 0 levothyroxine 137 mcg Tablet 137 mcg PO QAM RF: 0 atorvastatin 20 mg Tablet 20 mg PO HS RF: 0 trazodone 50 mg Tablet 150 mg PO HS RF: 0 metoprolol tartrate 100 mg Tablet 100 mg PO BID RF: 0 clonazepam 0.5 mg Tablet 0.5 mg PO HS RF: 0 cyanocobalamin (vitamin B-12) 1,000 mcg Tablet 1,000 mcg PO QAM RF: 0 Cranberry Plus Vitamin C 140-100 mg Capsule 1 cap PO QPM RF: 0 omeprazole 40 mg Capsule,Delayed Release(Dr/Ec) 40 mg PO QAM RF: 0 amlodipine 10 mg Tablet 10 mg PO QAM RF: 0 losartan 100 mg Tablet 100 mg PO QAM RF: 0 fluticasone propionate 50 mcg/actuation [place],Suspension 1 spray INTRANASAL QPM RF: 0 cholecalciferol (vitamin D3) [Vitamin D3] 1,000 unit Capsule 1,000 unit PO QAM RF: 0 Multivitamin 50 Plus Tablet 1 tab PO QAM RF: 0 cinnamon bark [Cinnamon] 500 mg Capsule 500 mg PO QPM RF: 0 Calcium 600 + D(3) 600 mg calcium- 200 unit Capsule 1 cap PO QPM RF: 0 levocetirizine 5 mg Tablet 5 mg PO HS RF: 0 omega 0-dgk-fxt-fish oil [Fish Oil] 1,000 mg (120 mg-180 mg) Capsule 1 cap PO QAM RF: 0 Prolia 60 mg/mL Syringe 60 mg SUBCUT UD RF: 0 melatonin 10 mg Tablet 10 mg PO HS RF: 0 potassium chloride 20 mEq Tablet Extended Release 20 meq PO BID RF: 0 Discharge Orders: Discharge Order (Routine); Ordered 10/29/18 Ordered By: Jerod Triana/Other Patient Handouts: Surgery Prevent DVT After Admission Data Admit Date/Time: 10/28/18 11:57 Attending Provider: Ck De Souza Admit Provider: Ck De Souza Primary Care Provider: Mihir Shepard Other Interventions: Discharge Summary Assessment (RN) Last Done: 10/29/18 08:41 DC Date/Time DO NOT enter until pt leaves facility: 10/29/18 11:36
== END 2018-10-29 11:36 | disposition home health service (06) | DRG 483 ==
LOC: ASU 07:40 → 3E 11:57